=== PATIENT | female | born 1945 | race Caucasian/White ===

== ENCOUNTER → 2020-07-09 12:53 | Outpatient (CLI) | payer MEDICARE, OTHER, SELFPAY ==
--- NOTE | 2020-07-09 | DI.MRI.S_ITS ---
PROCEDURE: MR HEAD/BRAIN WO/W CON INDICATIONS: Paresthesia of skin TECHNIQUE: Noncontrast axial T1 spin echo, axial T2 fast spin echo, sagittal and axial FLAIR, coronal T2 fast spin echo, axial gradient echo, axial diffusion and ADC through the brain. After the administration of contrast, axial and coronal T1 spin echo with fat saturation through the brain. COMPARISON: None. FINDINGS: Image quality: Excellent. CSF spaces: Basal cisterns are patent. No extra-axial fluid collections. Ventricles are normal in size and shape. Brain: No midline shift. No intracranial bleeds or masses. Numerous foci of increased T2 signal noted in the periventricular and subcortical white matter tracks. No abnormal intracranial enhancement. There is cerebral volume loss for age. There is periventricular white matter chronic small vessel ischemic change. The brainstem appears normal. Diffusion-weighted images demonstrate no acute ischemic insults. 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 Normal intravascular flow voids are present. Skull and face: Calvarial marrow is normal in signal. Orbits appear normal. Sinuses: Sinuses and mastoids appear clear. IMPRESSION: 1. No acute intracranial disease process. 2. Multiple foci of increased T2 signal involving the periventricular and subcortical white matter tracks. Lesions may represent chronic microvascular ischemic changes of aging, however lesions are nonspecific and other etiologies including demyelinating process such as multiple sclerosis could produce a similar appearance. Recommend correlation with clinical and laboratory data. 3. No suspicious postcontrast enhancement. 4. No areas of acute or chronic infarction. 5. No abnormal intracranial mass or mass effect. Dictated by: Autumn Fuentes MD, PhD on 07/09/2020 at 14:05 Approved by: Autumn Fuentes MD, PhD on 07/09/2020 at 14:11
== END ==
PROVIDERS: PCP Internal Medicine; Referring Provider Physician Assistant; Visit Provider Physician Assistant
DX: R20.2 Paresthesia of skin (principal); R51.9 Headache, unspecified
CPT/HCPCS: 70553